=== PATIENT | female | born 1970 | race Caucasian/White ===

== ENCOUNTER → 2016-02-13 | Outpatient (CLI) | payer BC | END | disposition home or self-care (01) | LOC: C.PAPS 15:37 | PROVIDERS: ATTEND Obstetrics & Gynecology | DX: Z01.419 Encounter for gynecological examination (general) (routine) without abnormal findings (principal) ==

== ENCOUNTER → 2016-06-07 | Outpatient (CLI) | payer BC ==
--- NOTE | 2016-06-07 15:08 | MAMMOGRAPHY REPORT ---
BILATERAL DIGITAL DIAGNOSTIC MAMMOGRAM WITH CAD: 06/07/2016 CLINICAL HISTORY: Short interval follow-up of bilateral breast calcifications. TECHNIQUE: Current study was also evaluated with a Computer Aided Detection (CAD) system. Bilatera l CC and MLO views including implant displaced views and bilateral spot magnification CC and ML view s were obtained. COMPARISON: Comparison is made to exams dated: 12/07/2015 mammogram, 05/23/2015 mammogram, 05/12/2015 mammogram, 05/10/2014 mammogram, 05/04/2013 mammogram, and 05/01/2012 mammogram - [facility]. BREAST COMPOSITION: The tissue of both breasts is extremely dense, which lowers the sensitivity of mammography. FINDINGS: Again noted is a small 3 mm cluster of punctate calcifications in the right slightly medi al breast at approximately 3:00, as well as a small 2 mm cluster of punctate calcifications in the l eft upper inner quadrant. The calcifications are stable on spot magnification views dating back to May 2015, and are probably benign given the morphology and stability. The remainder of both breasts are stable compared to prior exams, without suspicious masses, calcifi cations, or areas of architectural distortion noted. Bilateral subpectoral saline implants are stab le in appearance. IMPRESSION: ACR-BI-RADS CATEGORY 3: PROBABLY BENIGN Small clusters of punctate calcifications in bilateral breasts are stable on spot magnification view s dating back to May 2015, and are probably benign given the morphology and stability. Recommend bilateral diagnostic mammograms in 12 months, to confirm 2 years of stability of the calcifications on spot magnification views. The patient has been verbally notified of the results. Approximately 10% of breast cancers are not detected with mammography. A negative mammographic repor t should not delay biopsy if a clinically suggestive mass is present. Rajwinder Kessler M.D. ah/:06/07/2016 08:19:19 Lumber Racker: Drea STEIN(Raquel)(M), [facility] letter sent: Follow Up Recommended 3 BI-RADS Code: ACR-BI-RADS Category 3: Probably Benign
== END | disposition home or self-care (01) ==
LOC: C.MAMM 07:43
PROVIDERS: ATTEND Obstetrics & Gynecology
DX: Z09 Encounter for follow-up examination after completed treatment for conditions other than malignant neoplasm (principal); R92.1 Mammographic calcification found on diagnostic imaging of breast

== ENCOUNTER → 2017-06-10 | Outpatient (CLI) | payer OTHER ==
--- NOTE | 2017-06-10 14:12 | MAMMOGRAPHY REPORT ---
BILATERAL DIGITAL DIAGNOSTIC MAMMOGRAM TOMOSYNTHESIS WITH CAD: 06/10/2017 CLINICAL HISTORY: 46-year-old woman with bilateral saline implants presents for follow-up of bilatera l breast microcalcifications. Also due for annual bilateral screening exam. TECHNIQUE: Bilateral CC and MLO views of the breasts with and without implant displacement views were obtained. Tomosynthesis was performed on the implant displaced views. Spot magnification CC and ML views of each breast were also obtained. Current study was also evaluated with a Computer Aided Det ection (CAD) system. COMPARISON: Comparison is made to exams dated: 06/07/2016 mammogram, 12/07/2015 mammogram, 05/23/2015 mammogram, 05/12/2015 mammogram, 05/10/2014 mammogram, and 05/04/2013 mammogram - [facility]. BREAST COMPOSITION: The tissue of both breasts is extremely dense, which lowers the sensitivity of m ammography. FINDINGS: Bilateral subpectoral saline implants are intact. There are small, 2 mm, groupings of micr ocalcifications in the medial right breast and upper inner left breast that are seen on both the non- implant displaced and spot magnification views. When comparing back to prior available spot magnific ation views, the microcalcifications in the medial right breast and upper inner left breast are stabl e dating back to at least 05/23/2015. They most likely represent benign fibrocystic change. However, another 12 month follow-up diagnostic mammogram including spot magnification views is recommended to ensure longer stability. No obvious new masses, asymmetries, areas of architectural distortion or o ther calcifications are identified bilaterally. IMPRESSION: ACR-BI-RADS CATEGORY 3: PROBABLY BENIGN Stable bilateral mammograms, including stable 2 mm groupings of punctate microcalcifications in each breast. There is no definite mammographic evidence of malignancy. Would recommend another 12 month follow-up bilateral diagnostic mammogram including spot magnification views to ensure longer stabilit y. Annual bilateral screening mammography will also be due at that time. These results and recommendations were discussed with the patient at the time of the exam. Approximately 10% of breast cancers are not detected with mammography. A negative mammographic report should not delay biopsy if a clinically suggestive mass is present. Tri Alegria M.D. ay/:06/10/2017 10:13:55 Study Director: Mavis STEIN(R)(M), [facility] letter sent: Follow Up Recommended 3 BI-RADS Code: ACR-BI-RADS Category 3: Probably Benign
== END | disposition home or self-care (01) ==
LOC: C.MAMM 09:12
PROVIDERS: ATTEND Obstetrics & Gynecology
DX: R92.0 Mammographic microcalcification found on diagnostic imaging of breast (principal); Z98.82 Breast implant status